=== PATIENT | male | born 1990 | race Caucasian/White ===

== ENCOUNTER 2018-01-27 18:37 | Emergency (ER) | payer OTHER ==
[2018-01-27] MEDS ORDERED: 0.9 % SODIUM CHLORIDE 1,000 ML IV ONE (19:28)
[2018-01-27] MEDS ORDERED: ONDANSETRON HCL/PF 4 MG/ 2ML VIAL IVP ONE (19:28)
--- NOTE | 2018-01-27 19:32 | ED Physician Documentation ---
General Adult - HISTORIAN Historian: patient - HPI Stated Complaint: Nausea/Vomitng/Headache Chief Complaint: General Adult Additional Information: Aching MACHUCA at forehead with nausea began at 2200 last evening. Had been on amoxicillin for 7 days for strep throat and had gotten better till last evening. When he took amoxicillin last evening, he vomited. Hasn't eaten since last evening 2/2 nausea. No diarrhea; had normal bowel movement two days ago. Urine once today. No other associated signs and no modifying factors. - ROS CONST: denies: fever - PAST HX Past History: other (frequent sinus congestion) Surgeries/Procedures: other (hydrocele as an ) Allergies/Adverse Reactions: Allergies Allergy/AdvReac Type Severity Reaction Status Date / Time No Known Allergies Allergy Verified 01/27/18 19:02 Home Medications: Ambulatory Orders Medication Instructions Recorded Acetaminophen [Tylenol Extra 1,000 mg PO Q4 PRN 01/27/18 Strength] Amoxicillin 500 mg PO TID 01/27/18 Buprenorphine HCl/Naloxone HCl 1 each SL BID 01/27/18 [Suboxone 4 mg-1 mg Sl Film] Docusate Sodium [Colace] 100 mg PO BID PRN 01/27/18 Docusate Sodium [Dulcolax Stool 100 mg PO BID 01/27/18 Softener] Ibuprofen 400 mg PO Q4 PRN 01/27/18 Loperamide HCl [Immodium] 2 mg PO PRN PRN 01/27/18 Loratadine [Claritin] 10 mg PO DAILY PRN 01/27/18 Ranitidine HCl [Zantac] 150 mg PO BID 01/27/18 - SOCIAL HX Smoking History: cigarettes Drug Use: heroin (at [facility] and says he hasn't used for 30 days) - FAMILY HX Family History: No - VITAL SIGNS Vital Signs: Vital Signs Temp Pulse Resp BP Pulse Ox 98.6 F 70 16 116/67 97 01/27/18 18:45 01/27/18 18:45 01/27/18 18:45 01/27/18 18:45 01/27/18 18:45 - REVIEWED ASSESSMENTS Nursing Assessment Reviewed: Yes Vitals Reviewed: Yes Progress - Progress Progress: 2155, feels better, has urinated, MACHUCA getting better. Strep negative. ED Results Lab/Radiology - Orders Orders: ED Orders Category Date Time Status Place IV Lock 1T Care 01/27/18 19:28 Ordered CBC/PLATELET/DIFF Routine Lab 01/27/18 Ordered CMP Routine Lab 01/27/18 Ordered Rapid Strep [GRP A STREP SCREEN] Stat Lab 01/27/18 Ordered URINALYSIS Routine Lab 01/27/18 Ordered NORMAL SALINE @ 1000 MLS/HR ( 1000ml BOLUS) Med 01/27/18 19:28 Ordered 0.9 % Sodium Chloride [Normal Saline] 1,000 ml IV Q1H Ondansetron HCl/Pf [Zofran 4 mg/2 ml] Med 01/27/18 19:28 Once 4 mg IVP NOW ONE General Adult Physical Exam - PHYSICAL EXAM GENERAL APPEARANCE: moderate distress (appears tired, uncomfortable) EENT: eye inspection normal, ENT inspection normal, pharynx normal, pharyngeal erythema, other (post auricular lymph node on L, moveable, mild tenderness. No pain with palpation facial sinus areas.) NECK: normal inspection, supple RESPIRATORY: no resp distress, breath sounds normal CVS: reg rate & rhythm, heart sounds normal BACK: normal inspection SKIN: warm/dry, pallor (slight) EXTREMITIES: no evidence of injury NEURO: CN's nml as tested, motor nml, sensation nml, cognition normal Discharge Clincal Impression: Nausea Pharyngitis Qualifiers: Pharyngitis/tonsillitis etiology: unspecified etiology Qualified Code(s): J02.9 - Acute pharyngitis, unspecified Headache Qualifiers: Headache type: unspecified Headache chronicity pattern: acute headache Intractability: not intractable Qualified Code(s): R51 - Headache Referrals: Primary Doctor,No [Primary Care Provider] - 2 Days Condition: Fair Disposition: 01 HOME, SELF-CARE Decision to Admit: NO Decision Time: 21:55
[2018-01-27 20:05] LABS: BASOPHILS % 0.5 (0.0-1.5); EOSINOPHILS % 2.3 % (0.0-6.8); MEAN CORPUSCULAR HEMOGLOBIN 30.6 pg (28.0-34.0); MEAN CORPUSCULAR VOLUME 89.1 fl (80.0-100.0); MONOCYTES % 6.2 % (0.0-11.0); NEUTROPHILS # 8.2 # k/uL (1.4-7.7)
[2018-01-27 20:11] LABS: eGFR (African) > 60; eGFR (Non-African) > 60
[2018-01-27] MEDS ORDERED: KETOROLAC TROMETHAMINE 30 MG/1ML VIAL IVP ONE (21:35)
[2018-01-27 22:18] VITALS: BP 132/81
== END 2018-01-27 22:05 | disposition home or self-care (01) ==
LOC: ED 18:37
DX: J02.9 Acute pharyngitis, unspecified (principal); R51 Headache; R11.0 Nausea
CPT/HCPCS: 80053; 85025; 86308; J1885; J2405; J7030; 87070; 87880; 96360; 96374; 96375; 99284; S1016